=== PATIENT | female | born 1965 | race Caucasian/White ===

== ENCOUNTER 2016-10-12 23:37 | Emergency (ER) | payer BC, OTHER ==
[~2016-10-12] VITALS: Ht 167.6 cm; Wt 83.2 kg
[~2016-10-12 23:37] MED LIST: ADVAIR 250/501 DISK IH; ALBUTEROL SULF8.5 GM IH; ALLERGY RELIEF10 M3 PO; LEVAQUIN500 MG PO; LISINOPRIL; LISINOPRIL20 MG PO; PAXIL10 MG PO; PREDNISONE20 MG PO; PROVENTIL,2.5 MG/3 M IH; SYNTHROID100 MCG PO
[2016-10-13] MEDS ORDERED: AUGMENTIN875 MG PO (01:20)
[2016-10-13 02:30] VITALS: BP 139/90
== END 2016-10-13 03:02 | disposition home or self-care (01) ==
LOC: EME 23:37 → EXP 23:37
DX: S61.451A Open bite of right hand, initial encounter (principal); L03.113 Cellulitis of right upper limb; W54.0XXA Bitten by dog, initial encounter
CPT/HCPCS: 99281; 99284; J0295; J1885; J7040; J7050

== ENCOUNTER → 2016-10-19 | Outpatient (CLI) | payer BC, OTHER ==
[~2016-10-19] MED LIST changes: +AUGMENTIN875 MG PO; +BREO ELLIPTA I1 EACH IH; +NORCO 5/3251 TABLET PO; +PRAVACHOL40 MG PO; +PROAIR HFA8.5 GM IH; +SINGULAIR10 MG PO; +ZYRTEC10 M2 PO
== END | disposition home or self-care (01) ==
LOC: CDC 14:46
DX: M25.561 Pain in right knee (principal)
CPT/HCPCS: 93000

== ENCOUNTER 2016-10-21 23:25 | Emergency (ER) | payer BC, OTHER ==
[~2016-10-21] VITALS: Ht 170.2 cm; Wt 83.1 kg
[~2016-10-21 23:25] MED LIST changes: -BREO ELLIPTA I1 EACH IH; -NORCO 5/3251 TABLET PO; -PRAVACHOL40 MG PO; -PROAIR HFA8.5 GM IH; -SINGULAIR10 MG PO; -ZYRTEC10 M2 PO
[2016-10-22 00:52] LABS: HEMATOCRIT 39.6 % (36.0-46.0); MCHC 34.3 G/DL (30.0-36.0); MCV 84.4 FL (83-99); PLATELET COUNT 205 K/uL (156-360); RBC DIS.WIDTH-SD 35.9 % (39-53); RED BLOOD COUNT 4.69 M/uL (3.80-5.20); WHITE BLOOD COUNT 11.8 K/uL (4.1-10.2)
[2016-10-22 01:03] LABS: CHLORIDE 105 mEq/L (99-109); POTASSIUM 3.6 mEq/L (3.7-5.4); SODIUM 139 mEq/L (136-147)
[2016-10-22 01:04] LABS: GLUCOSE 94 mg/dL (70-99)
[2016-10-22 01:06] LABS: ANION GAP 9 MEQ/L (2-14)
[2016-10-22 01:08] LABS: GFR ESTIMATE (CALCULATED) > 59 mL/min/
[2016-10-22 01:09] LABS: UREA NITROGEN (BUN) 16 mg/dL (9-23)
[2016-10-22] MEDS ORDERED: NORCO 5/3251 TABLET PO (01:47)
[2016-10-22 02:42] VITALS: BP 129/76
[2016-10-22] MEDS ORDERED: PAXIL10 MG PO (19:46)
[2016-10-22] MEDS ORDERED: PRAVACHOL40 MG PO (19:46)
[2016-10-22] MEDS ORDERED: SINGULAIR10 MG PO (19:46)
[2016-10-22] MEDS ORDERED: SYNTHROID100 MCG PO (19:46)
[2016-10-22] MEDS ORDERED: BREO ELLIPTA I1 EACH IH (19:47)
[2016-10-22] MEDS ORDERED: LISINOPRIL20 MG PO (19:47)
[2016-10-22] MEDS ORDERED: ZYRTEC10 M2 PO (19:48)
[2016-10-22] MEDS ORDERED: PROAIR HFA8.5 GM IH (19:48)
== END 2016-10-22 02:42 | disposition home or self-care (01) ==
LOC: EME 23:25
PROVIDERS: Emergency Medicine
DX: S61.451A Open bite of right hand, initial encounter (principal); L03.113 Cellulitis of right upper limb; W54.0XXA Bitten by dog, initial encounter; I10 Essential (primary) hypertension; E78.5 Hyperlipidemia, unspecified; K21.9 Gastro-esophageal reflux disease without esophagitis
CPT/HCPCS: 73130; 80048; 83605; 85027; 87040; 99281; 99285; J0696; J7050; S0030

== ENCOUNTER 2016-12-04 12:42 | Day surgery (SDC) | payer BC, OTHER ==
[~2016-12-04] VITALS: Ht 167.6 cm; Wt 81.7 kg
[~2016-12-04 12:42] MED LIST changes: +BREO ELLIPTA I1 EACH IH; +MULTIPLE VITAM1 EACH PO; +NORCO 5/3251 TABLET PO; +PRAVACHOL40 MG PO; +PROAIR HFA8.5 GM IH; +SINGULAIR10 MG PO; +ZYRTEC10 M2 PO
[2016-12-04 13:03] VITALS: BP 126/73
[2016-12-04 16:30] VITALS: BP 148/88
[2016-12-04 17:08] VITALS: BP 138/81
== END 2016-12-04 17:22 | disposition home or self-care (01) ==
LOC: SDC 12:42
PROC: 0SBC4ZZ Excision of Right Knee Joint, Percutaneous Endoscopic Approach (ICD-10-PCS; principal; 2016-12-04)
DX: M23.221 Derangement of posterior horn of medial meniscus due to old tear or injury, right knee (principal); M17.11 Unilateral primary osteoarthritis, right knee; I10 Essential (primary) hypertension; E03.9 Hypothyroidism, unspecified; K21.9 Gastro-esophageal reflux disease without esophagitis; J45.909 Unspecified asthma, uncomplicated; Z88.2 Allergy status to sulfonamides
CPT/HCPCS: J0171; J1100; J1885; J2250; J2405; J3010

== ENCOUNTER → 2017-02-28 | Outpatient (CLI) | payer BC | END | disposition home or self-care (01) | LOC: MRI 13:23 → RAD 13:30 | DX: S46.011A Strain of muscle(s) and tendon(s) of the rotator cuff of right shoulder, initial encounter (principal); M75.51 Bursitis of right shoulder; M19.011 Primary osteoarthritis, right shoulder; M75.41 Impingement syndrome of right shoulder | CPT/HCPCS: 73221 ==

== ENCOUNTER → 2017-08-15 | Outpatient (CLI) | payer BC, OTHER | END | disposition home or self-care (01) | LOC: CDC 15:00 | DX: Z01.810 Encounter for preprocedural cardiovascular examination (principal); M25.511 Pain in right shoulder; M75.111 Incomplete rotator cuff tear or rupture of right shoulder, not specified as traumatic; M75.41 Impingement syndrome of right shoulder; M19.011 Primary osteoarthritis, right shoulder | CPT/HCPCS: 93000 ==

== ENCOUNTER 2017-08-28 11:19 | Day surgery (SDC) | payer BC, OTHER ==
[~2017-08-28] VITALS: Ht 170.2 cm; Wt 81.6 kg
[~2017-08-28 11:19] MED LIST changes: +VITAMIN D31000 UNI2 PO
[2017-08-28 12:00] VITALS: BP 114/71
[2017-08-28 18:36] VITALS: BP 135/73
[2017-08-28 19:47] VITALS: BP 131/74
[2017-08-28 21:15] VITALS: BP 135/66
== END 2017-08-28 21:25 | disposition home or self-care (01) ==
LOC: SDC 11:19
DX: M75.111 Incomplete rotator cuff tear or rupture of right shoulder, not specified as traumatic (principal); M19.011 Primary osteoarthritis, right shoulder; M75.41 Impingement syndrome of right shoulder; I10 Essential (primary) hypertension; E78.00 Pure hypercholesterolemia, unspecified; J45.909 Unspecified asthma, uncomplicated; E03.9 Hypothyroidism, unspecified; Z88.2 Allergy status to sulfonamides
CPT/HCPCS: C1713; J0131; J0171; J0330; J0690; J1100; J2250; J2405; J2710; J2795; J3010; J7643; Q0175